=== PATIENT | female | born 1980 | race Caucasian/White ===

== ENCOUNTER → 2016-08-07 | Outpatient (CLI) | payer OTHER ==
--- NOTE | ~2016-08-07 | MR113 ---
[facility] A Service of [facility] RADIOLOGY TEXT RESULTS PATIENT: SHARLA VEGA LOCATION: [facility] : 78 UNIT #: [id number] AGE: [address]: Giorgi Ramirez MD SEX: F ORDER DR: [id number] [facility] [address] [place] [address]. [place], [place] [address] [id number] MR#: [id number] Acc #: [id number] NAME: SHARLA VEGA : 1980 SEX: F STUDY DATE/TIME: 08/07/2016 16:16 UNIT: [facility] ROOM: STUDY DESCRIPTION: MR Lumbar Wo Contrast Attending Physician: Giorgi Ramirez M.D. Referring Physician: Giorgi Ramirez M.D. Ordering Physician: Giorgi Ramirez M.D. Primary Care Physician: Kati Luna A.P.R.N. MRI CENTER REPORT This report is preliminary unless electronic signature is present. EXAM Lumbar MRI HISTORY Chronic degenerative disc disease. Low back and bilateral leg pain with numbness over the past 2 years. TECHNIQUE Multiplanar imaging of the lumbar spine was performed with short and long TR. COMPARISON 04/05/2014 FINDINGS Alignment is satisfactory. There is mild desiccation of the disc at L5-S1. The other discs show normal hydration without significant bulging or herniation. Mild facet hypertrophy is seen from L2-3 to the sacrum. There is no significant canal narrowing or foraminal narrowing on either side. IMPRESSION Mild degenerative disc disease L5-S1. Multilevel facet degenerative changes unchanged from the previous examination. No evidence of progression of central stenosis or foraminal narrowing since the previous exam. Dictated by... Brady Paniagua M.D. THIS IS AN ELECTRONICALLY VERIFIED REPORT Brady Paniagua M.D. at 08/08/2016 3:45 PM RLF/danie [facility] A Service of [facility] RADIOLOGY TEXT RESULTS PATIENT: SHARLA VEGA [facility] UNIT #: [id number] AGE: [address]: Giorgi Ramirez MD SEX: F ORDER DR: TD: 08/08/2016 15:31 JOB #: [id number] MRI [facility]ENTER REPORT Page 1 of 1 COPY
== END | disposition home or self-care (01) ==
LOC: CMRI 15:47
DX: M51.36 Other intervertebral disc degeneration, lumbar region (principal); M48.06 Spinal stenosis, lumbar region; M51.37 Other intervertebral disc degeneration, lumbosacral region; M47.816 Spondylosis without myelopathy or radiculopathy, lumbar region
CPT/HCPCS: 72148